=== PATIENT | male | born 1955 | race Caucasian/White ===

== ENCOUNTER → 2018-06-19 | Outpatient (CLI) | payer MEDICARE, OTHER ==
--- NOTE | 2018-06-19 15:34 | KCIC ---
Bowling radiographs of the orbits 06/19/2018 CLINICAL HISTORY: Possible metal exposure to the eye. Pre-MRI evaluation. A Bowling digital radiograph of the orbits was obtained. No radiopaque foreign body is seen involving either orbit. The visualized paranasal sinuses are clear. No fracture is seen. IMPRESSION: No radiopaque foreign body is seen involving either orbit. Electronically signed by: Wilmer Magallon MD (06/19/2018 3:30 PM) [id number]
--- NOTE | 2018-06-19 19:10 | KCIC ---
MRI of the thoracic spine without contrast 06/19/2018 CLINICAL HISTORY: Chronic mid back pain. TECHNIQUE: Unenhanced T1-weighted, T2-weighted and inversion recovery sagittal and T1-weighted and T2-weighted axial images of the thoracic spine were obtained. T2-weighted sagittal images of the cervical, thoracic and lumbar spine were obtained for localization purposes. FINDINGS: Very mild S-shaped curvature of the thoracolumbar spine is seen. Degenerative signal changes and loss of height are seen involving all of the disks of the thoracic spine. Degenerative signal changes are seen within the marrow surrounding these discs. The thoracic spinal cord is normal in morphology, position, and signal characteristics. Degenerative changes are seen involving the thoracic disc spaces consisting of minimal to mild generalized disc bulges and degenerative changes involving the facet joints. A left paracentral focal disc protrusion is seen at at T8-9. This measures 3 mm in AP diameter. These findings do not result in definite areas of significant central spinal canal or neural foraminal stenosis. IMPRESSION: Degenerative changes are seen throughout the thoracic spine as outlined above. These findings do not result in areas of significant central spinal canal or neural foraminal stenosis. Electronically signed by: Wilmer Magallon MD (06/19/2018 7:06 PM) [email or web address]
== END | disposition home or self-care (01) ==
LOC: KCIC MRI 15:16
PROVIDERS: ATTEND Anesthesiology Pain Medicine
DX: Z01.00 Encounter for examination of eyes and vision without abnormal findings (principal); M47.894 Other spondylosis, thoracic region; M51.24 Other intervertebral disc displacement, thoracic region
CPT/HCPCS: 70030; 72146